=== PATIENT | female | born 1945 | race Caucasian/White ===

== ENCOUNTER → 2017-11-26 | Outpatient (CLI) | payer MEDICARE ==
[2017-11-26 08:43] LABS: Albumin 4.5 g/dL (3.5-5.0); Calcium 9.6 mg/dL (8.4-10.2); Potassium 4.9 mmol/L (3.5-5.1); Total Bilirubin 0.4 mg/dL (0.2-1.3); Total Protein 7.2 g/dL (6.3-8.2)
== END | disposition home or self-care (01) ==
LOC: LABWHC1 07:41
PROVIDERS: ATTEND Internal Medicine Interventional Cardiology
DX: E78.2 Mixed hyperlipidemia (principal); I10 Essential (primary) hypertension
CPT/HCPCS: 36415; 80053; 80061

== ENCOUNTER → 2020-12-10 | Outpatient (CLI) | payer MEDICARE ==
--- NOTE | 2020-12-10 10:03 | BD ---
EXAMINATION TYPE: Axial Bone Density DATE OF EXAM: 12/10/2020 COMPARISON: 03.07.2009 CLINICAL HISTORY: 75 YR OLD FEMALE.....ICD-10 CODE: M85.88 OSTEOPENIA FRAX RISK QUESTIONS: NOTHING TO NOTE HERE RISK FACTORS HISTORY OF: Diet low in dairy products/other sources of calcium: YES, LACTOSE INTOLERANT Postmenopausal woman: YES, AT AGE 46 YO Take estrogen and/or progesterone medications: YES, ON THEM FOR APPROX. 15 YRS ....STOPPED 5 YRS AGO Hyperparathyroidism: NO Adrenal Insufficiency: NO MEDICATIONS: Thyroid Medications: YES, FOR ABOUT 30 YRS Additional Medications: REFLUX MEDS, STATIN FOR CHOLESTEROL, VIT D AND CALCIUM Additional History: REFLUX, OSTEOPENIA, CHOLESTEROL, EXAM MEASUREMENTS: Bone mineral densitometry was performed using the [employer]. Bone mineral density as measured about the Lumbar spine is: ----- L1-L4(G/cm2): 0.977 T Score Values are as follows: ----- L1: -1.4 ----- L2: -1.4 ----- L3: -1.3 ----- L4: -2.6 ----- L1-L4: -1.7 Bone mineral density has: Decreased -3.0% since study of: 03.07.2009 Bone mineral density about the R hip (g/cm2): 0.788 Bone mineral density about the L hip (g/cm2): 0.796 T Score values are as follows: -----R Neck: -1.8 -----L Neck: -2.0 -----R Total: -1.7 -----L Total: -1.7 Bone mineral density has: Decreased -8.9% since study of: 03.07.2009 FRAX%s: THERE IS A 13.6% CHANCE FOR A MAJOR OSTEOPOROTIC FX AND A 3.7% FOR HIP.....PROBABILITY FOR FX IN 10 YRS TIME IMPRESSION: Osteopenia (T Score between -2.5 and -1). There is slightly increased risk of fracture and the patient may be considered for treatment. Re-Screen 2-5 years. NOTE: T-SCORE=SD OF THE YOUNG ADULT MEAN.
== END | disposition home or self-care (01) ==
LOC: RADBDWWP 07:17
PROVIDERS: ATTEND Obstetrics & Gynecology
DX: M85.80 Other specified disorders of bone density and structure, unspecified site (principal)
CPT/HCPCS: 77080

== ENCOUNTER → 2021-02-08 | Outpatient (CLI) | payer MEDICARE ==
--- NOTE | 2021-02-12 10:09 | MM ---
Reason for exam: screening (asymptomatic). Last mammogram was performed 11 years ago. History: Patient is postmenopausal. Family history of breast cancer in sister at age 62 and breast cancer in mother at age 80. Benign excisional biopsy of the left breast, 1989. Cyst aspiration of the left breast. Cyst aspiration of the right breast. Physical Findings: A clinical breast exam by your physician is recommended on an annual basis and results should be correlated with mammographic findings. MG 3D Screening Mammo W/Cad Bilateral CC and MLO view(s) were taken. Prior study comparison: January 19, 2020, mammogram, performed at [facility]. October 28, 2018, mammogram, performed at [facility]. The breast tissue is heterogeneously dense. This may lower the sensitivity of mammography. No significant changes when compared with prior studies. ASSESSMENT: Benign, BI-RAD 2 RECOMMENDATION: Routine screening mammogram of both breasts in 1 year. Patient should continue monthly self breast exams. A negative report should not preclude additional follow up of suspicious palpable abnormalities.
== END | disposition home or self-care (01) ==
LOC: RADMAMWWP 14:53
PROVIDERS: ATTEND Obstetrics & Gynecology
DX: Z12.31 Encounter for screening mammogram for malignant neoplasm of breast (principal); Z80.3 Family history of malignant neoplasm of breast
CPT/HCPCS: 77063; 77067

== ENCOUNTER → 2022-02-10 | Outpatient (CLI) | payer MEDICARE ==
--- NOTE | 2022-02-11 08:11 | MM ---
Reason for Exam: Screening (asymptomatic). Last screening mammogram was performed 12 month(s) ago. Patient History: Menarche at age 15. First Full-Term at age 18. Postmenopausal. Cyst Aspiration on the Right side. Cyst Aspiration on the Left side. 1990, Benign Excisional Biopsy on the left side. Sister had breast cancer, age 62. Mother had breast cancer, age 80. Risk Values: Huong 5 year model risk: 8.8%. NCI Lifetime model risk: 16.2%. Prior Study Comparison: 10/28/2018 Screening Mammogram, [facility]. 01/19/2020 Screening Mammogram, [facility]. 02/08/2021 Bilateral Screening Mammogram, [facility]. Tissue Density: The breast tissue is heterogeneously dense. This may lower the sensitivity of mammography. Findings: Analyzed By CAD. There is no suspicious group of microcalcifications or new suspicious mass in either breast. No significant change from prior exams. Overall Assessment: Benign, BI-RAD 2 Management: Screening Mammogram of both breasts in 1 year. A clinical breast exam by your physician is recommended on an annual basis and results should be correlated with mammographic findings. Electronically signed and approved by: Max Decker D.O.
== END | disposition home or self-care (01) ==
LOC: RADMAMWWP 13:42
PROVIDERS: ATTEND Obstetrics & Gynecology
DX: Z12.31 Encounter for screening mammogram for malignant neoplasm of breast (principal); Z78.0 Asymptomatic menopausal state; Z80.3 Family history of malignant neoplasm of breast
CPT/HCPCS: 77063; 77067

== ENCOUNTER → 2023-02-17 | Outpatient (CLI) | payer MEDICARE ==
--- NOTE | 2023-02-17 08:56 | BD ---
EXAMINATION TYPE: Axial Bone Density DATE OF EXAM: 02/17/2023 CLINICAL HISTORY: 77 years old Female. ICD-10 CODE: M85.80 DISORDER OF BONE Height: 62 Weight: 130.5 FRAX RISK QUESTIONS: Alcohol (3 or more units per day): no Family History (Parent hip fracture): no Glucocorticoids (More than 3mos): no (Ex: prednisone, prednisolone, methylprednisolone, dexamethasone, and hydrocortisone). History of Fracture in Adulthood: no Secondary Osteoporosis: 1. Type 1 Diabetes: no 2. Hyperthyroidism: no 3. Menopause before 45: no 4. Malnutrition: no 5. Chronic liver disease: no Rheumatoid Arthritis: no Current Tobacco Use: no RISK FACTORS HISTORY OF: Surgery to Spine/Hip(right/left)/Wrist (right/left): no Family History of Osteoporosis: yes Active: yes Diet low in dairy products/other sources of calcium: yes Postmenopausal woman: yes Lost more than 2 inches in height since high school: no MEDICATIONS: Thyroid Medications: levothyroxine How Lon years Additional History: EXAM MEASUREMENTS: Bone mineral densitometry was performed using the [employer] System. Bone mineral density as measured about the Lumbar spine is: ----- L1-L4(G/cm2): 0.959 T Score Values are as follows: ----- L1: -1.8 ----- L2: -1.6 ----- L3: -2.0 ----- L4: -2.1 ----- L1-L4: -1.8 Z Score Values are as follows: ----- L1: 0.2 ----- L2: 0.4 ----- L3: 0.0 ----- L4: -0.1 ----- L1-L4: 0.2 Bone mineral density has: decreased -1.8 % since study of: 12.10.2020 Bone mineral density about the R hip (g/cm2): 0.781 Bone mineral density about the L hip (g/cm2): 0.804 T Score values are as follows: -----R Neck: -2.2 -----L Neck: -2.0 -----R Total: -1.8 -----L Total: -1.6 Z Score values are as follows: -----R Neck: 0.1 -----L Neck: 0.2 -----R Total: 0.3 -----L Total: 0.4 Bone mineral density has: 0.0 % since study of: 8.2.2020 FRAX%s: The graph provided illustrates a 15.8% chance for a major osteoporotic fx and a 4.9% chance f or the hips probability for fx in 10 years time. IMPRESSION: Osteopenia (T Score between -2.5 and -1). There is slightly increased risk of fracture and the patient may be considered for treatment. Re-Screen 2-5 years. NOTE: T-SCORE=SD OF THE YOUNG ADULT MEAN.
--- NOTE | 2023-02-18 09:35 | MM ---
Reason for Exam: Screening (asymptomatic). Last screening mammogram was performed 12 month(s) ago. Patient History: Menarche at age 15. First Full-Term at age 18. Postmenopausal. Cyst Aspiration on the Right side. Cyst Aspiration on the Left side. 1989, Benign Excisional Biopsy on the left side. Sister had breast cancer, age 62. Mother had breast cancer, age 80. Risk Values: Huong 5 year model risk: 8.7%. NCI Lifetime model risk: 15.0%. Prior Study Comparison: 01/19/2020 Screening Mammogram, [facility]. 02/08/2021 Bilateral Screening Mammogram, [facility]. 02/10/2022 Bilateral MG 3D screening mammo w/cad, [facility]. Tissue Density: The breast tissue is heterogeneously dense. This may lower the sensitivity of mammography. Findings: Analyzed By CAD. There is no suspicious group of microcalcifications or new suspicious mass in either breast. Overall Assessment: Negative, BI-RAD 1 Management: Screening Mammogram of both breasts in 1 year. . Patient should continue monthly self-breast exams. A clinical breast exam by your physician is recommended on an annual basis. This exam should not preclude additional follow-up of suspicious palpable abnormalities. Note on Huong scores and lifetime risk: 1. A Huong score greater than 3% is considered moderate risk. If this is the case, consider specialist referral to assess eligibility for a risk reducing agent. 2. If overall lifetime risk for the development of breast cancer is 20% or higher, the patient may qualify for future screening with alternating mammogram and breast MRI. Electronically signed and approved by: Jacky Viramontes M.D. Radiologis
== END | disposition home or self-care (01) ==
LOC: RADMAMWWP 07:56
PROVIDERS: ATTEND Family Medicine
DX: Z12.31 Encounter for screening mammogram for malignant neoplasm of breast (principal); M85.89 Other specified disorders of bone density and structure, multiple sites; Z78.0 Asymptomatic menopausal state; Z80.3 Family history of malignant neoplasm of breast
CPT/HCPCS: 77063; 77067; 77080

== ENCOUNTER → 2023-09-25 | Outpatient (CLI) | payer MEDICARE ==
[2023-09-25 10:39] LABS: ALT 14 U/L (8-44); AST 23 U/L (13-35); Chol/HDL Ratio 2.42 Ratio; LDL Cholesterol,Calculated 83.8 mg/dL (0.0-131.0)
== END | disposition home or self-care (01) ==
LOC: LABWHC1 07:24
PROVIDERS: ATTEND Internal Medicine Interventional Cardiology
DX: Z00.00 Encounter for general adult medical examination without abnormal findings (principal); E78.00 Pure hypercholesterolemia, unspecified
CPT/HCPCS: 36415; 80061; 84450; 84460

== ENCOUNTER → 2024-03-01 | Outpatient (CLI) | payer MEDICARE ==
--- NOTE | 2024-03-01 17:50 | US ---
EXAMINATION TYPE: US kidneys/renal and bladder DATE OF EXAM: 03/01/2024 COMPARISON: NONE CLINICAL INDICATION: Female, 78 years old with history of R10.9 ABD PAIN; Left flank pain x a couple months. TECHNIQUE: Grayscale and color Doppler imaging of the bilateral kidneys and urinary bladder: FINDINGS: EXAM MEASUREMENTS: Right Kidney: 9.2 x 4.6 x 3.2 cm Left Kidney: 10.0 x 4.8 x 4.3 cm Right Kidney: Renal pelvis appears prominent. Compatible with extrarenal pelvis. Left Kidney: No hydronephrosis or masses seen Bladder: Appears anechoic. Bladder wall measures 0.36 cm - borderline thickened versus not fully dist ended? Bilateral Jets seen: Yes Incidental finding: Uterus appears bulky and very heterogeneous. Uterus measures 10.0 x 9.3 x 7.3 c m. Patient states she has a history of fibroids. IMPRESSION: 1. No evidence for acute process. No obstructive uropathy or renal calculus. 2. Fibroid uterus. [facility], Workstation: [id number], 03/01/2024 5:48 PM
== END | disposition home or self-care (01) ==
LOC: RADUSWWP 12:32
PROVIDERS: ATTEND Family Medicine
DX: D25.9 Leiomyoma of uterus, unspecified (principal)
CPT/HCPCS: 76770

== ENCOUNTER → 2024-03-01 | Outpatient (CLI) | payer MEDICARE ==
--- NOTE | 2024-03-03 17:28 | MM ---
Reason for Exam: Screening (asymptomatic). Last screening mammogram was performed 12 month(s) ago. Patient History: Menarche at age 15. First Full-Term at age 18. Postmenopausal. Cyst Aspiration on the Right side. Cyst Aspiration on the Left side. 1989, Benign Excisional Biopsy on the left side. Sister had breast cancer, age 62. Mother had breast cancer, age 80. Risk Values: Huong 5 year model risk: 8.6%. NCI Lifetime model risk: 13.8%. Prior Study Comparison: 02/08/2021 Bilateral Screening Mammogram, [facility]. 02/10/2022 Bilateral MG 3D screening mammo w/cad, [facility]. 02/17/2023 Bilateral MG 3D screening mammo w/cad, [facility]. Tissue Density: The breasts are heterogeneously dense, which may obscure small masses. Findings: Analyzed By CAD. There is no suspicious group of microcalcifications or new suspicious mass in either breast. Overall Assessment: Negative, BI-RAD 1 Management: Screening Mammogram of both breasts in 1 year. See note below in regards to the patient's increased 5 year Huong score. Patient should continue monthly self-breast exams. A clinical breast exam by your physician is recommended on an annual basis. This exam should not preclude additional follow-up of suspicious palpable abnormalities. Note on Huong scores and lifetime risk: 1. A Huong score greater than 3% is considered moderate risk. If this is the case, consider specialist referral to assess eligibility for a risk reducing agent. 2. If overall lifetime risk for the development of breast cancer is 20% or higher, the patient may qualify for future screening with alternating mammogram and breast MRI. [facility], , 03/03/2024 5:25 PM. Electronically signed and approved by: Van Whitley M.D. Radiologist
== END | disposition home or self-care (01) ==
LOC: RADMAMWWP 12:31
PROVIDERS: ATTEND Family Medicine
DX: Z12.31 Encounter for screening mammogram for malignant neoplasm of breast
CPT/HCPCS: 77063; 77067

== ENCOUNTER → 2024-03-03 | Outpatient (CLI) | payer MEDICARE ==
--- NOTE | 2024-03-03 14:55 | XR ---
EXAMINATION TYPE: XR lumbosacral spine min 4V DATE OF EXAM: 03/03/2024 2:38 PM INDICATION: Patient age:Female; 78 years old; Reason for study: M54.50 XR LOW BACK PAIN; [facility]. COMPARISON: Lumbar spine radiograph 01/24/2015 TECHNIQUE: Frontal, lateral , bilateral oblique and coned in L5-S1 lateral views of the spine. FINDINGS: There are 5 lumbar type vertebral bodies identified. No evidence of any acute osseous patho logy. No evidence of loss of vertebral body height is seen. Multilevel disc space narrowing with end plate sclerosis. Multilevel facet arthropathy. No spondylolisthesis. Atherosclerotic calcification of the aorta. 8 mm calcification within the right upper quadrant which may represent a gallstone. IMPRESSION: 1. No acute process. 2. Mild multilevel degenerative disc disease. [facility], , 03/03/2024 2:53 PM
== END | disposition home or self-care (01) ==
LOC: RADXRMAIN 14:14
PROVIDERS: ATTEND Family Medicine
DX: M51.379 Other intervertebral disc degeneration, lumbosacral region without mention of lumbar back pain or lower extremity pain (principal)
CPT/HCPCS: 72110